=== PATIENT | male | born 1955 | race Hispanic/Latino ===

== ENCOUNTER 2021-05-23 10:51 | Emergency (ER) | payer OTHER, SELFPAY ==
--- NOTE | ~2021-05-23 | CT_ITS ---
EXAMINATION: CT brain wo con INDICATION: Head injury COMPARISON: None TECHNIQUE: Standard unenhanced head CT. The dose-length product (DLP) was 605.33 mGy-cm. The mA was a djusted according to patient size. Iterative reconstruction technique was employed. FINDINGS: There is no intracranial hemorrhage, acute infarction, or abnormal mass lesion. The ventric les are normal. There is no abnormal mass effect or midline shift. The way-white matter differentiat ion is normal. The basal cisterns are patent. The orbits are normal. The paranasal sinuses, mastoids and calvarium are normal. IMPRESSION: 1. No acute intracranial abnormality. Reviewed, dictated and finalized at location A. E CARE PHYSICAL THERAPIST
--- NOTE | ~2021-05-23 | CT_ITS ---
EXAMINATION: CT thoracic lumbar wo con DATE: 05/23/2021 11:27 INDICATION: Thoracic back pain after fall TECHNIQUE: Computed tomography (CT) of the thoracic and lumbar spine was performed without intravenou s contrast. The dose-length product (DLP) was 605.33 mGy-cm. Iterative reconstruction was used. COMPARISON: None FINDINGS: Thoracic spine: There is no fracture, dislocation, or subluxation. The vertebral body heights, alignm ent, and intervertebral disc spaces are normal. The paravertebral soft tissues are unremarkable. Lumbar spine: There are changes of anterior and posterior fusion at L4-5. No fracture is identified. The vertebral body heights are normal. The prevertebral soft tissues are unremarkable. A bone graft h arvest site is noted in left ilium. IMPRESSION: 1. No acute osseous abnormality of the thoracic or lumbar spine. Reviewed, dictated and finalized at location A. OF ACQUISITIONS
--- NOTE | ~2021-05-23 | CT_ITS ---
EXAMINATION: CT cervical spine wo con DATE: 05/23/2021 11:27 INDICATION: Head injury, neck pain TECHNIQUE: Computed tomography (CT) of the cervical spine was performed without intravenous contrast. The dose-length product (DLP) was 605.33 mGy-cm. Automated exposure control and iterative reconstruc tion technique were employed. COMPARISON: None FINDINGS: There is no fracture, dislocation, or subluxation. The vertebral body heights are maintaine d. There is mild loss of intervertebral disc space height at C6-7. The odontoid is intact. The prever tebral soft tissues are normal. IMPRESSION: 1. Mild cervical spondylosis without acute findings. Reviewed, dictated and finalized at location A. ICAL CHEMISTRY PROFESSOR
[2021-05-23 10:55] VITALS: BP 154/85; PULSE 65; RESP 18; TEMP 36.8; O2SAT 100
--- NOTE | 2021-05-23 11:09 | ED.HEATRA ---
HPI - Head Injury General Chief complaint: Head Injury Stated complaint: head injury yesterday Time Seen by Provider: 05/23/21 10:55 Source: patient and family Mode of arrival: ambulatory Limitations: language barrier (Patient's daughter is interpreting, which he prefers) History of Present Illness HPI Narrative: This is a 66-year-old male that presents to the emergency department for head injury sustained yesterday. 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 He slipped and fell on the ice landing on his back and hitting his head on the ground. Reports he vomited after this. He does not think that he lost consciousness. Since he has had persistent headache and feels lightheaded. Also reports neck and back pain. Denies vision changes, numbness, or weakness. Related Data Allergies Allergy/AdvReac Type Severity Reaction Status Date / Time No Known Allergies Allergy Verified 05/23/21 11:15 Review of Systems Review of Systems: CONSTITUTIONAL: Denies fever EYES: Denies visual changes GASTROINTESTINAL: Reports vomiting MUSCULOSKELETAL: Reports back pain, joint pain, and myalgia. NEUROLOGIC: Reports headache. Denies numbness, or weakness. All systems reviewed & are unremarkable except as noted in HPI and below PMFSH Past Medical History Medical History (Updated 05/23/21 @ 12:17 by Kala Donaldson PA-C) History of gastroesophageal reflux (GERD) History of hyperlipidemia Social History Social History (Updated 05/23/21 @ 11:12 by Kala Donaldson PA-C) Smoking status: Never smoker Exam Narrative: GENERAL: Well-appearing, well-nourished, and in no acute distress. HEAD: Normocephalic, atraumatic. EYES: PERRLA and EOMI. ENT: Nares clear, no rhinorrhea or epistaxis. Mucous membranes moist. Oropharynx without tonsillar hypertrophy exudate or other lesions. Bilateral TMs pearly way non-bulging NECK: Supple. No adenopathy or masses. Tender to palpation of midline cervical spine CHEST: Clear to auscultation. No respiratory distress. No wheezes rales or rhonchi HEART: Regular rate and rhythm. No murmur heard. Normal peripheral pulses. BACK: Tender to palpation of midline thoracic and lumbar spine EXTREMITIES: Normal range of motion. No edema. Strength equal in bilateral upper and lower extremities (5/5) SKIN: Warm, dry, no rash. NEURO: No focal deficits. Alert and oriented x3. Cranial nerves II through XII grossly intact PSYCH: Normal mood and affect Course Vital Signs Vital signs: Vital Signs Temperature 98.2 F 05/23/21 10:55 Pulse Rate 65 05/23/21 10:55 Respiratory Rate 18 05/23/21 10:55 Blood Pressure 154/85 H 05/23/21 10:55 Pulse Oximetry 100 05/23/21 10:55 Temperature 98.2 F 05/23/21 10:55 Pulse Rate 65 05/23/21 10:55 Respiratory Rate 18 05/23/21 10:55 Blood Pressure 154/85 H 05/23/21 10:55 Pulse Oximetry 100 05/23/21 10:55 MDM - Head Injury MDM Narrative Medical decision making narrative: Patient presents to the emergency department after head injury yesterday with headache, neck pain, back pain. Patient is neurologically intact. CT scan of the brain, cervical spine, thoracic and lumbar spine without acute findings. Patient and family updated on case findings. He was instructed on care of concussion. He is to follow-up with his primary care doctor. He was given warnings to return to the ER Imaging Data Radiologist's impression: ITS Impressions Head CT 05/23/21 11:45 IMPRESSION: 1. No acute intracranial abnormality. Cervical Spine CT 05/23/21 11:49 IMPRESSION: 1. Mild cervical spondylosis without acute findings. Thoracic/Lumbar Spine CT 05/23/21 11:53 IMPRESSION: 1. No acute osseous abnormality of the thoracic or lumbar spine. Critical Care Time Critical Care Time Critical Care Time: No Discharge Plan Discharge Clinical Impression: Acute neck pain Closed head injury Qualifiers: Encounter type: initial encounter Qualified
[2021-05-23] MEDS: ACETAMINOPHEN 500 MG TABLET 1000 MG PO (11:31)
[2021-05-23] MEDS: ONDANSETRON HCL ODT 4 MG TABLET PO (12:07)
--- NOTE | 2021-05-23 12:07 | PC.NURSE ---
C Collar removed per PA instructions.
[2021-05-23 12:27] VITALS: BP 138/82; PULSE 76; RESP 16; O2SAT 100
== END 2021-05-23 12:28 | disposition home or self-care (01) ==
PROVIDERS: Emergency Provider Emergency Medicine; PCP Family Medicine
DX: S09.90XA Unspecified injury of head, initial encounter (principal); M54.2 Cervicalgia; K21.9 Gastro-esophageal reflux disease without esophagitis; E78.5 Hyperlipidemia, unspecified; M47.812 Spondylosis without myelopathy or radiculopathy, cervical region; W00.0XXA Fall on same level due to ice and snow, initial encounter
CPT/HCPCS: 70450; 72125; 72128; 72131; 99284; A9270; L0140

== ENCOUNTER 2021-11-21 23:14 | Emergency (ER) | payer OTHER, SELFPAY ==
--- NOTE | ~2021-11-21 | XR_ITS ---
EXAMINATION: XR shoulder RT min 2V INDICATION: Right shoulder pain TECHNIQUE: Four views of the right shoulder are submitted. COMPARISON: None FINDINGS: Normal alignment. No fracture. There is moderate osteoarthritis of the acromioclavicular neli int. Soft tissues are unremarkable. IMPRESSION: 1. Osteoarthritis without acute osseous abnormality. Reviewed, dictated and finalized at location A.
[2021-11-21 23:21] VITALS: BP 159/85; PULSE 58; RESP 16; TEMP 36.1; O2SAT 100
[2021-11-21] MEDS: KETOROLAC (*BKC) 60 MG/2 ML VIAL IM (23:34)
--- NOTE | 2021-11-21 23:50 | ED.UPPEXIN ---
HPI - Extremity Injury (Upper) General Chief Complaint: Extremity Injury, Upper Stated Complaint: upper arm/shoulder injury Time Seen by Provider: 11/21/21 23:17 History of Present Illness HPI narrative: 66-year-old male presents emergency room secondary to pain to the right shoulder area. 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 Yesterday he was pulling on a large tree branch and then began having pain yesterday evening. The pain is mainly to the posterior aspect of the shoulder around the scapular region. Denies any fall or trauma. He was not struck by anything to his shoulder. Denies any chronic ongoing issues with his right upper extremity. Just cannot get into a position of comfort. Whenever he sits up or stands up just the weight of his arm coming down causes pain to the area. 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 Head Normocephalic and atraumatic. EYES: PERRLA/EOMI, conjunctivae clear. NOSE: Normal with no drainage EARS:TMS clear with Colón, with good light reflex. THROAT: Pharynx clear, no exudate. NECK: Supple. No adenopathy, no masses. RESPIRATORY: Airway patent, respirations nonlabored. Clear to auscultation bilaterally, no rales, rhonchi, wheezing. CARDIOVASCULAR: Regular rate and rhythm without murmurs, rubs, or gallops. ABDOMINAL: Soft, nontender, nondistended, no hepatosplenomegaly Musculoskeletal: Moves all extremities. Strength/ROM intact, No edema, No calf tenderness. Tenderness with range of motion testing to the right upper extremity. He is got some tenderness to palpation along the trapezius muscles on the right side. No obvious deformity. Good distal pulses. NEURO: Alert. Cranial nerves II through XII intact. Normal gait. Good coordination. Nonfocal examination. SKIN:: Warm, dry. Normal Color PSYCHIATRIC: Normal affect/mood, normal interaction Course Vital Signs Vital signs: Vital Signs Temperature 97.0 F L 11/21/21 23:21 Pulse Rate 58 L 11/21/21 23:21 Respiratory Rate 16 11/21/21 23:21 Blood Pressure 159/85 H 11/21/21 23:21 Pulse Oximetry 100 11/21/21 23:21 Oxygen Delivery Room Air 11/21/21 23:21 Temperature 97.0 F L 11/21/21 23:21 Pulse Rate 58 L 11/21/21 23:21 Respiratory Rate 16 11/21/21 23:21 Blood Pressure 159/85 H 11/21/21 23:21 Pulse Oximetry 100 11/21/21 23:21 Oxygen Delivery Room Air 11/21/21 23:21 MDM - Extremity Injury (Upper) MDM Narrative Medical decision making narrative: Presentation consistent with musculoskeletal type pain muscular in nature predominantly to the right shoulder area. X-ray was obtained as interpreted by me shows some arthritic changes at the AC joint. No other abnormalities are noted. This was explained to the patient. We will fitted him with a right arm sling because the weight of his arm is causing more muscle spasm and pain. We will discharge him with a prescription for Naprosyn as well as some Flexeril. Given a work excuse for 3 days. Discharge Plan Discharge Clinical Impression: Muscle strain of right scapular region Patient Disposition: Home, Self-Care Condition: Stable Instructions: Musculoskeletal Pain (ED) Additional Instructions: Use sling as needed. Return if worse. Prescriptions: New naproxen [Naprosyn] 500 mg tablet 500 mg PO BID PRN (Reason: pain) Qty: 20 0RF cyclobenzaprine 10 mg tablet 10 mg PO TID PRN
[2021-11-22 00:32] VITALS: BP 123/73; PULSE 60; RESP 16; O2SAT 100
== END 2021-11-22 00:31 | disposition home or self-care (01) ==
PROVIDERS: Emergency Provider Emergency Medicine; PCP Family Medicine
DX: S46.811A Strain of other muscles, fascia and tendons at shoulder and upper arm level, right arm, initial encounter (principal); K21.9 Gastro-esophageal reflux disease without esophagitis; E78.5 Hyperlipidemia, unspecified; X50.9XXA Other and unspecified overexertion or strenuous movements or postures, initial encounter
CPT/HCPCS: 73030; 96372; 99283; A4565; J1885

== ENCOUNTER 2023-02-28 12:48 | Emergency (ER) | payer MEDICARE, MEDICAID, SELFPAY ==
--- NOTE | ~2023-02-28 | CT_ITS ---
EXAMINATION: CT abdomen pelvis w con DATE: 02/28/2023 13:57 INDICATION: Right lower quadrant pain TECHNIQUE: Computed tomography (CT) of the abdomen and pelvis was performed with 100 cc Omnipaque 350 intravenous contrast. The dose-length product was 503.29 mGy-cm. Automated exposure control and iter ative reconstruction technique were employed. COMPARISON: None. FINDINGS: There is dependent atelectasis. No significant pleural or pericardial effusion. Heart size normal. Fatty infiltration of the liver. There is a liver cyst involving the right hepatic lobe. The spleen, pancreas, adrenal glands are unremarkable. There are bilateral renal cysts. No hydronephrosis . Nonobstructive bowel gas pattern. Nonobstructive bowel gas pattern. Colonic diverticulosis without evidence for diverticulitis. Enlarged prostate gland. No significant vascular abnormality. No lymphad enopathy. Gallbladder is present. No free air or free fluid. There is osteoarthritis of the hips. The re is a bone marrow donor site in the left ilium. There are surgical changes consistent with fusion a t L4-5. IMPRESSION: 1. No acute abdominal abnormality. 2: Hepatic steatosis. Reviewed, dictated and finalized at location B. DITCHER
[2023-02-28 12:49] VITALS: BP 130/90; PULSE 64; RESP 16; TEMP 36.8; O2SAT 100
[2023-02-28 13:09] VITALS: PULSE 60; RESP 18; O2SAT 99
[2023-02-28 13:15] VITALS: PULSE 61; RESP 20; O2SAT 98
[2023-02-28 13:20] LABS: Basophils Percent Auto 0.5 % (0.2-1.2); Eosinophils Absolute Auto 0.2 K/mm3 (0-0.3); Eosinophils Percent Auto 2.8 % (0-4.4); Hematocrit 40.8 % (42.0-52.0); Hemoglobin 14.2 g/dL (14.0-18.0); Immature Granulocyte Absolute 0.01 K/mm3 (0.00-0.031); Immature Granulocyte Percent A 0.1 % (0-0.5); Lymphocytes Absolute Auto 2.25 K/mm3 (0.9-3.2); Lymphocytes Percent Auto 29.8 % (18.3-44.2); Mean Corpuscular HGB Conc 34.8 g/dl (32-36); Mean Corpuscular Hemoglobin 31.8 pg (26-34); Mean Corpuscular Volume 91.5 fl (80-100); Mean Platelet Volume 9.2 fl (7.4-10.4); Monocytes Absolute Auto 0.6 K/mm3 (0.1-0.6); Monocytes Percent Auto 7.7 % (2.6-8.5); Neutrophils Absolute Auto 4.5 K/mm3 (1.3-6.7); Neutrophils Percent Auto 59.1 % (45.5-73.1); Platelet Count Result 174 k/mm3 (150-375); Red Blood Count 4.46 M/mm3 (4.6-6.20); Red Cell Distribution Width 11.8 % (11.5-14.5); White Blood Count 7.6 K/mm3 (4.5-10.0)
[2023-02-28 13:22] LABS: Appearance Urine Clear (Clear); Bilirubin Urine Negative (Negative); Blood Urine Negative (Negative); Color Urine Yellow (Yellow); Glucose Urine UA Negative (Negative); Ketones Urine Negative (Negative); Leukocyte Esterase Ur Negative LEU/UL (Negative); Nitrate Urine Negative (Negative); Protein Urine Negative (Negative); Specific Grav Ur 1.022 (1.001-1.035); Urobilinogen Urine 0.2 mg/dL (<2.0); pH Urine 5.5 (5.0-9.0)
[2023-02-28 13:30] VITALS: PULSE 56; RESP 20; O2SAT 98
[2023-02-28 13:31] LABS: Alanine Aminotransferase 33 U/L (6-50); Albumin Level 4.5 g/dL (3.5-5.1); Alkaline Phosphatase 62 U/L (38-126); Anion Gap 9 mmol/L (8-16); Aspartate Amino Transferase 31 U/L (17-59); Bilirubin,Total 0.9 mg/dL (0.2-1.3); Blood Urea Nitrogen 20 mg/dL (9-20); Carbon Dioxide 28 mmol/L (22-30); Chloride 104 mmol/L (98-107); Estimated CRCL calculation 71 ml/min; Estimated Glomerular Filt Rate > 60; Glucose 111 mg/dL (65-110); Potassium 3.6 mmol/L (3.4-5.0); Sodium 141 mmol/L (137-145)
[2023-02-28 13:40] LABS: Add Urine Microscopic? NO
--- NOTE | 2023-02-28 13:48 | PC.NURSE ---
Pt taken for CT at this time
--- NOTE | 2023-02-28 13:55 | PC.NURSE ---
Pt returned to room 2 at this time
[2023-02-28 14:03] VITALS: PULSE 58; RESP 19; O2SAT 99
--- NOTE | 2023-02-28 14:19 | ED.GENADULT ---
HPI - General Adult General Chief complaint: Abdominal Pain Stated complaint: abd pain Time Seen by Provider: 02/28/23 12:59 History of Present Illness HPI narrative: Patient is a 68-year-old male who presents ER with right-sided abdominal pain. Right lower quadrant. Aching. Intermittently over last 2 weeks. No fevers or chills or sweats. Endorses mild constipation. Last bowel movement was today and the previous 1 was yesterday. No urinary symptoms. Cannot identify alleviating factors. Denies trauma. Related Data Allergies Allergy/AdvReac Type Severity Reaction Status Date / Time No Known Allergies Allergy Verified 05/23/21 11:15 Review of Systems Review of Systems: All systems reviewed & are unremarkable except as noted in HPI and below Constitutional: Constitutional: Reports no additional constitutional complaints ENT: Reports system reviewed and no additional complaints, except as documented Cardiovascular: Cardiovascular: Reports no additional cardiovascular complaints Respiratory: Respiratory: Reports no additional respiratory complaints Gastrointestinal: Gastrointestinal: Reports abdominal pain, Denies nausea and Denies vomiting PMFSH Past Medical History Medical History (Updated 02/28/23 @ 14:20 by Nigel Young MD) History of gastroesophageal reflux (GERD) History of hyperlipidemia Postconcussion syndrome Social History Social History (Updated 11/21/21 @ 23:51 by Carmelo Monzon DO) Smoking status: Never smoker Occupation/Education: occupation Additional occupation/education comments: [employer] Exam Narrative: GENERAL: Well-appearing, well-nourished, and in no acute distress. HEAD: Normocephalic, atraumatic. ENT: Mucous membranes moist. CHEST: Clear to auscultation. No respiratory distress. HEART: Regular rate and rhythm. Normal peripheral pulses. ABDOMEN: Soft, mild tenderness palpation right lower quadrant, nondistended. EXTREMITIES: Normal range of motion. No edema. SKIN: Warm, dry, no rash. NEURO: Alert and oriented x3. PSYCH: Normal mood and affect. Course Course Emergency Course: Unremarkable evaluation. Patient appropriate for discharge home. Will start on stool softener. Vital Signs Vital signs: Vital Signs Temperature 98.2 F 02/28/23 12:49 Pulse Rate 64 02/28/23 12:49 Respiratory Rate 16 02/28/23 12:49 Blood Pressure 130/90 02/28/23 12:49 Pulse Oximetry 100 02/28/23 12:49 Temperature 98.2 F 02/28/23 12:49 Pulse Rate 58 L 02/28/23 14:03 Respiratory Rate 19 02/28/23 14:03 Blood Pressure 128/78 02/28/23 14:30 Pulse Oximetry 99 02/28/23 14:03 Medical Decision Making Vital Signs Vital Signs: Vital Signs Temperature 98.2 F 02/28/23 12:49 Pulse Rate 64 02/28/23 12:49 Respiratory Rate 16 02/28/23 12:49 Blood Pressure 130/90 02/28/23 12:49 Pulse Oximetry 100 02/28/23 12:49 Temperature 98.2 F 02/28/23 12:49 Pulse Rate 58 L 02/28/23 14:03 Respiratory Rate 19 02/28/23 14:03 Blood Pressure 128/78 02/28/23 14:30 Pulse Oximetry 99 02/28/23 14:03 Lab Data 02/28/23 13:12 02/28/23 13:12 Labs: Lab Results 02/28/23 02/28/23 Range/Units 13:11 13:12 WBC 7.6 (4.5-10.0) K/mm3 RBC 4.46 L (4.6-6.20) M/mm3 Hgb 14.2 (14.0-18.0) g/dL Hct 40.8 L (42.0-52.0) % MCV 91.5 (80-100) fl MCH 31.8 (26-34) pg MCHC 34.8 (32-36) g/dl RDW 11.8 (11.5-14.5) % Plt Count 174 (150-375) k/mm3 MPV 9.2 (7.4-10.4) fl Immature Gran % (Auto) 0.1 (0-0.5) % Neut % (Auto) 59.1 (45.5-73.1) % Lymph % (Auto) 29.8 (18.3-44.2) % [place] % (Auto) 7.7 (2.6-8.5) % Eos % (Auto) 2.8 (0-4.4) % Baso % (Auto) 0.5 (0.2-1.2) % Lymph # (Auto) 2.25 (0.9-3.2) K/mm3 [place] # (Auto) 0.6 (0.1-0.6) K/mm3 Eos # (Auto) 0.2 (0-0.3) K/mm3 Baso # (Auto) 0.0 (0.0-0.1) K/mm3 Abs Immat Gran (auto) 0.01 (0.0
[2023-02-28 14:30] VITALS: BP 128/78
== END 2023-02-28 14:30 | disposition home or self-care (01) ==
LOC: ANHED 14:32
PROVIDERS: Emergency Provider Emergency Medicine; PCP Family Medicine
DX: R10.9 Unspecified abdominal pain (principal); K21.9 Gastro-esophageal reflux disease without esophagitis; E78.5 Hyperlipidemia, unspecified
CPT/HCPCS: 36415; 74177; 80053; 81003; 85025; 99284; Q9967

== ENCOUNTER 2024-03-19 18:27 | Emergency (ER) | payer MEDICARE, MEDICAID, SELFPAY ==
--- NOTE | ~2024-03-19 | XR_ITS ---
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 RESULT: Lines, tubes, and devices: None. Lungs and pleura: Clear. Cardiomediastinal silhouette: Stable. Other: No acute osseous or upper abdominal finding. IMPRESSION: No acute cardiopulmonary process. Reviewed, dictated and finalized at location K. BLANK MACHINE OPERATOR
--- NOTE | 2024-03-19 18:28 | ECG_ITS ---
Test Date: 2024-03-19 18:34:34 Measurements Intervals [place] Rate: 57 P: -20 NH: 138 QRS: 57 QRSD: 92 T: 46 QT: 395 QTc: 387 Interpretive Statements SINUS BRADYCARDIA POSSIBLE RIGHT VENTRICULAR CONDUCTION DELAY [RSR (QR) IN V1/V2] No previous ECG available for comparison Electronically Signed On 03-20-2024 14:50:46 BUTTER PRODUCTION SUPERVISOR by Wendy Perez M.D.
[2024-03-19 18:29] VITALS: BP 154/64; PULSE 60; RESP 18; TEMP 36.5; O2SAT 100
[2024-03-19 21:29] LABS: Basophils Percent Auto 0.6 % (0.2-1.2); Eosinophils Absolute Auto 0.2 K/mm3 (0-0.3); Eosinophils Percent Auto 2.9 % (0-4.4); Hematocrit 40.1 % (42.0-52.0); Hemoglobin 14.2 g/dL (14.0-18.0); Immature Granulocyte Absolute 0.03 K/mm3 (0.00-0.031); Immature Granulocyte Percent A 0.4 % (0-0.5); Mean Corpuscular HGB Conc 35.4 g/dl (32-36); Mean Corpuscular Hemoglobin 32.3 pg (26-34); Mean Corpuscular Volume 91.3 fl (80-100); Mean Platelet Volume 9.4 fl (7.4-10.4); Monocytes Absolute Auto 0.5 K/mm3 (0.1-0.6); Monocytes Percent Auto 7.5 % (2.6-8.5); Neutrophils Absolute Auto 3.9 K/mm3 (1.3-6.7); Neutrophils Percent Auto 55.6 % (45.5-73.1); Platelet Count Result 178 k/mm3 (150-375); Red Blood Count 4.39 M/mm3 (4.6-6.20); Red Cell Distribution Width 11.9 % (11.5-14.5)
[2024-03-19 21:39] LABS: Alanine Aminotransferase 33 U/L (6-50); Albumin Level 4.6 g/dL (3.5-5.1); Alkaline Phosphatase 66 U/L (38-126); Anion Gap 6 mmol/L (4-12); Aspartate Amino Transferase 31 U/L (17-59); Bilirubin,Total 0.8 mg/dL (0.2-1.3); Blood Urea Nitrogen 25 mg/dL (9-20); Calcium 9.3 mg/dL (8.4-10.2); Carbon Dioxide 27 mmol/L (22-30); Chloride 108 mmol/L (98-107); Estimated CRCL calculation 63 ml/min; Estimated Glomerular Filt Rate > 60; Glucose 111 mg/dL (65-110); Lipase 87 U/L (23-300); Potassium 4.3 mmol/L (3.4-5.0); Sodium 141 mmol/L (137-145)
[2024-03-19 21:51] LABS: Troponin I < 0.012 ng/mL (0.000-0.034)
[2024-03-19 21:54] LABS: Partial Thromboplastin Time 25.7 Seconds (22.3-36.8); Prothrombin Time 13.4 Seconds (11.1-14.7)
[2024-03-19 23:23] VITALS: BP 150/76; PULSE 52; RESP 16; TEMP 36.4; O2SAT 98
--- NOTE | 2024-03-20 01:46 | ECG_ITS ---
Test Date: 2024-03-20 01:52:19 Measurements Intervals [place] Rate: 50 P: 10 UT: 153 QRS: 58 QRSD: 97 T: 49 QT: 431 QTc: 393 Interpretive Statements SINUS BRADYCARDIA POSSIBLE RIGHT VENTRICULAR CONDUCTION DELAY [RSR (QR) IN V1/V2] Compared to ECG 03/19/2024 18:34:34 No significant changes Electronically Signed On 03-20-2024 14:54:01 FLYER REPAIRER by Wendy Perez M.D.
[2024-03-20] MEDS: ASPIRIN 81 MG CHEWABLE TABLET 324 MG PO (02:00)
--- NOTE | 2024-03-20 02:01 | ED_ITS ---
HPI - Chest Pain General Chief Complaint: Chest Pain Stated Complaint: lower back pain and CP Time Seen by Provider: 03/20/24 01:57 Source: patient and family Mode of arrival: ambulatory Limitations: language barrier (Italian as second language - declined interpretive services x2; said wouldn't understand; understands Italian and speaks some but prefers to speak in Nauruan) History of Present Illness HPI narrative: Patient presents with chest pain and low back pain. Chest pain occurs when he bends over, initially noticed it while bending over in the shower 15 days ago. Described as a tightness/burning sensation especially when he bends over. Non radiating. Intermittent. No prior sress test or cardiac catheterization. Has not seen cardiology. Has never happened before. Some shortness of breath. No cough, fever, chills, nausea, vomiting, diaphoresis. States he has a history of a GI issue (GERD or gastritis) that he was prescribed medicine for but not taking. Symptoms possibly associated with food like spicy food though unsure. History of hypertension, hyperlipidemia (on a statin). No history diabetes. Non smoker. No prior VA/TIA/CVA. No family history of VA <65yo. Back pain started Tuesday, is low and radiates into right buttock and leg, to the knee. He has a history of back surgery. Pain worse when standing and walking. No trauma/injury, paresthesias, saddle anesthesia, bowel/bladder incontinence, steroids use, cancer. No hematuria/urgency/frequency/dysuria. Has not yet taken anything for pain. He states occasionally he experiences right sided abdominal pain. Denies any underlying respiratory issues but then states he is on a medication for breathing. PCP Katie Damian Related Data Allergies Allergy/AdvReac Type Severity Reaction Status Date / Time No Known Allergies Allergy Verified 05/23/21 11:15 [facility] Past Medical History Medical History Hypertension Postconcussion syndrome History of gastroesophageal reflux (GERD) History of hyperlipidemia Surgical History Surgical History (Updated 03/21/24 @ 19:13 by Zohra Conklin MD) History of back surgery Social History Social History Smoking status: Never smoker Occupation/Education: occupation Additional occupation/education comments: [employer] 2 Narrative: GENERAL: Well-appearing, well-nourished, and in no acute distress. HEAD: Normocephalic, atraumatic. EYES: Non injected, non icteric ENT: Nares clear, no rhinorrhea or epistaxis. NECK: Supple. CHEST: Speaking in full sentences. No respiratory distress. HEART: Regular rate and rhythm. . ABDOMEN: Soft, nondistended. BACK: No TTP of low thoracic or lumbar spine; no bony deformities. Straight leg raise negative bilaterally. Can show some side to side and rotational movement. EXTREMITIES: Normal range of motion. No lower extremity edema. 5/5 strength with ankle dorsiflexion/plantarflexion bilaterally, knee flexion/extension, hip flexion/abduction/adduction. SKIN: Warm, dry, no rash. NEURO: No focal deficits. Alert and oriented x3. Sensation intact in bilateral lower extremities. PSYCH: Normal mood and affect. Course Vital Signs Vital signs: Vital Signs Temperature 97.7 F 03/19/24 18:29 Pulse Rate 60 03/19/24 18:29 Respiratory Rate 18 03/19/24 18:29 Blood Pressure 154/64 H 03/19/24 18:29 Pulse Oximetry 100 03/19/24 18:29 Oxygen Delivery Room Air 03/19/24 18:29 Temperature 98 F 03/20/24 09:12 Pulse Rate 59 L 03/20/24 09:12 Respiratory Rate 20 03/20/24 09:12 Blood Pressure 146/88 H 03/20/24 09:12 Pulse Oximetry 98 03/20/24 09:12 Oxygen Delivery Room Air 03/20/24 02:07 MDM - Chest Pain MDM Narrative Medical decision making narrative: Patient presents with chest pain and back pain. In the emergency department he is afebrile with vital signs notable for mild hypertension. HEART SCORE History 2 highly suspicious 1 moderately suspicious 0 slightly suspicious History score [address] depression/elevation not due to LBBB, LVH, or digoxin [address] depression but LBBB, LVH, nonspecific repolarization changes 0 normal ECG score 0 Age 2 >/= 65 1 45-64 0 <45 Age score 2 Risk factors (HTN, hypercholesterolemia, DM, obesity with BMI >30, current smoker or cessation </=3mo), positive fam hx with parent or sibling with CVD before age 65, atherosclerotic disease (prior VA, PCI/CABG, CVA/TIA, or peripheral arterial disease) 2 >/= 3 risk factors or history of atherosclerotic dz 1 - 1-2 risk factors 0 no known risk factors Risk factor score 1 (HLD) Initial Troponin 2 >3 times normal limit 1 1-3 times normal limit 0 less than or equal to normal limit Troponin score = 0 Total HEART Score 3 Repeat troponin negative. Patient's chest pain sounds very GI in nature, in particular GERD and we discussed the relaxation of the esophageal sphincter and the heartburn that can result. Patient given medication for this. Back has no deformities, external skin changes, or signs of trauma. Curvature is within normal limits. No tenderness is noted on palpation of the spinous processes which are midline. Lumbar paraspinal muscles are not tender under without spasm. Patient demonstrates flexion, extension, and [id number] rotation of the lumbar spine. Sensation to the lower extremities is normal bilaterally. Dorsi/plantar flexion is normal bilaterally. Straight leg raise test is negative bilaterally. They do not have any other red flags for fracture, malignancy, infection (e.g. spinal epidural abscess), or aortic/vascular: Age, no trauma, not on chronic steroids, no cancer, no fever, immunosuppression, left sided abdominal pain, tearing pain, or urinary symptoms. Given this, will defer further imaging at this time. His symptoms are classically sciatica. Given analgesic medication and discussed multimodal pain strategy and the importance of stretching exercises. Patient and daughter verify understanding. Differential Diagnosis Differential diagnosis: Likely unstable angina pectoris, atypical chest pain, st elevation myocardial infarction, chest pain, biliary colic and other (GERD, gastritis) Lab Data Attestation: I reviewed the patient's lab results. 03/19/24 21:09 03/19/24 21:09 Labs: Lab Results 03/19/24 03/20/24 Range/Units 21:09 02:01 WBC 7.0 (4.5-10.0) K/mm3 RBC 4.39 L (4.6-6.20) M/mm3 Hgb 14.2 (14.0-18.0) g/dL Hct 40.1 L (42.0-52.0) % MCV 91.3 (80-100) fl MCH 32.3 (26-34) pg MCHC 35.4 (32-36) g/dl RDW 11.9 (11.5-14.5) % Plt Count 178 (150-375) k/mm3 MPV 9.4 (7.4-10.4) fl Immature Gran % (Auto) 0.4 (0-0.5) % Neut % (Auto) 55.6 (45.5-73.1) % Lymph % (Auto) 33.0 (18.3-44.2) % [place] % (Auto) 7.5 (2.6-8.5) % Eos % (Auto) 2.9 (0-4.4) % Baso % (Auto) 0.6 (0.2-1.2) % Lymph # (Auto) 2.30 (0.9-3.2) K/mm3 [place] # (Auto) 0.5 (0.1-0.6) K/mm3 Eos # (Auto) 0.2 (0-0.3) K/mm3 Baso # (Auto) 0.0 (0.0-0.1) K/mm3 Abs Immat Gran (auto) 0.03 (0.00-0.031) K/mm3 Absolute Neuts (auto) 3.9 (1.3-6.7) K/mm3 Absolute Nucleated RBC 0.000 (0.0-0.012) K/mm3 Nucleated RBC % 0.0 (0.0-0.2) % PT 13.4 (11.1-14.7) Seconds INR 1.0 APTT 25.7 (22.3-36.8) Seconds Sodium 141 (137-145) mmol/L Potassium 4.3 (3.4-5.0) mmol/L Chloride 108 H (98-107) mmol/L Carbon Dioxide 27 (22-30) mmol/L Anion Gap 6 (4-12) mmol/L BUN 25 H (9-20) mg/dL Creatinine 0.90 (0.7-1.3) mg/dL Estim Creat Clear Calc 63 ml/min Estimated GFR > 60 (59 - ) Glucose 111 H (65-110) mg/dL Calcium 9.3 (8.4-10.2) mg/dL Total Bilirubin 0.8 (0.2-1.3) mg/dL AST 31 (17-59) U/L ALT 33 (6-50) U/L Alkaline Phosphatase 66 (38-126) U/L Troponin I < 0.012 < 0.012 (0.000-0.034) ng/mL Total Protein 8.0 (6.3-8.2) g/dL Albumin 4.6 (3.5-5.1) g/dL Lipase 87 (23-300) U/L Imaging Data Radiologist's impression: IMPRESSION: No acute cardiopulmonary process. ECG Data EKG #1: Attestation: I personally reviewed and interpreted this ECG as follows: ECG completion date: 03/19/24 ECG completion time: 18:34 Prior ECG tracings: not available for review (No prior for comparison) Interpretation: Sinus bradycardia at a rate of 57 beats per minute. GA interval 138. QRS 92. QT/QTC 395/390. Good R-wave progression across the precordial leads. No T-wave inversions. Normal axis. EKG #2: Attestation: I personally reviewed and interpreted this ECG as follows: ECG completion date: 03/20/24 ECG completion time: 01:52 Interpretation: Sinus bradycardia at a rate of 50 beats per minute. GA interval 153. QRS 97. QT/QTC 431/403. Good R-wave progression across the precordial leads. No T-wave inversions. Normal axis. Discharge Plan Discharge Clinical Impression: Chest pain due to GERD, Sciatica of right side Patient Disposition: Home, Self-Care Condition: Stable Instructions: Antibiotic Form, Diet for Stomach Ulcers and Gastritis (ED), Sciatica (ED), GERD (Gastroesophageal Reflux Disease) (DC), Lower Back Exercises (ED) Additional Instructions: As we discussed, it appears your chest pain is due to GERD. The initial treatment for this is both related to changing diet as well as using the medication prescribed (which might be the medication you had previously been prescribed for gastritis). However, given the you are otherwise low risk but not WITHOUT risk, recommend you follow up with cardiology for a further assessment in the outpatient setting - name and information listed below. For your back pain, a multimodal pain regimen strategy has been prescribed. As we discussed, the goal is to balance rest with treating pain in a variety of worry to allow you to maintain activities and movement including back strengthening exercises. Acetaminophen/Tylenol (maximum 4000 mg per day) is safe to take with NSAIDs (ibuprofen/Motrin) for pain relief. Follow up with your primary care provider Katie Damian. Return to the ER if you have increased pain in your back, you develop lower extremity weakness/numbness/paralysis, you have numbness or tingling in your private parts, or you are unable to control your ability to urinate/stool. Patient Language: Italian Prescriptions: New omeprazole 20 mg tablet,delayed release (DR/EC) 20 mg PO DAILY Qty: 30 0RF acetaminophen 500 mg capsule 1,000 mg PO Q6H PRN (Reason: pain) Qty: 30 0RF lidocaine 4 % adhesive patch,medicated 1 patch topical DAILY PRN (Reason: pain) Qty: 5 0RF methocarbamol 750 mg tablet 750 mg PO HS Qty: 10 0RF ibuprofen 600 mg tablet 600 mg PO TID PRN (Reason: pain) Qty: 30 0RF No Action ondansetron 4 mg tablet,disintegrating 4 mg PO Q8H PRN (Reason: nausea and vomiting) Qty: 10 0RF naproxen [Naprosyn] 500 mg tablet 500 mg PO BID PRN (Reason: pain) Qty: 20 0RF cyclobenzaprine 10 mg tablet 10 mg PO TID PRN (Reason: muscle spasm) Qty: 30 0RF naproxen 375 mg tablet 375 mg PO BID Qty: 14 0RF docusate sodium [Colace] 100 mg capsule 100 mg PO DAILY Qty: 7 0RF docusate sodium [Colace] 100 mg capsule 100 mg PO DAILY Qty: 7 0RF naproxen 375 mg tablet 375 mg PO BID Qty: 14 0RF Follow-up/Referrals: Wendy Perez [Other] Cruzito,Artemio Singh MD [Primary Care Provider] - Stand Alone Forms: Work/School Release IP Time of Disposition: 08:09
[2024-03-20 02:28] LABS: Troponin I < 0.012 ng/mL (0.000-0.034)
[2024-03-20] MEDS: HYDROcodone/acetaminophen (*CRX) 5-325 MG TABLET 1 TAB PO (02:41)
[2024-03-20] MEDS: FAMOTIDINE 20 MG/2 ML VIAL IV PUSH (02:41)
--- NOTE | 2024-03-20 07:08 | PC.NURSE ---
See downtime paper documentation.
[2024-03-20 07:31] VITALS: BP 144/80; PULSE 53; RESP 17; TEMP 36.4; O2SAT 100
[2024-03-20 09:12] VITALS: BP 146/88; PULSE 59; RESP 20; TEMP 36.6; O2SAT 98
== END 2024-03-20 09:12 | disposition home or self-care (01) ==
PROVIDERS: Physician Assistant; Emergency Provider Student in an Organized Health Care Education/Training Program; PCP Family Medicine
DX: K21.9 Gastro-esophageal reflux disease without esophagitis (principal); M54.41 Lumbago with sciatica, right side; I10 Essential (primary) hypertension; E78.5 Hyperlipidemia, unspecified; R00.1 Bradycardia, unspecified; R94.31 Abnormal electrocardiogram [ECG] [EKG]
CPT/HCPCS: 36415; 71046; 80053; 83690; 84484; 85025; 85610; 85730; 93005; 96374; 99284; A9270

== ENCOUNTER 2024-06-23 06:27 | Emergency (ER) | payer MEDICARE, MEDICAID, SELFPAY ==
--- NOTE | ~2024-06-23 | CT_ITS ---
Non-contrast CT scan of the Abdomen and Pelvis Clinical indication: Left flank pain Technique: 2.5 mm axial scans were obtained through the abdomen and pelvis without intravenous or or al contrast. Dose reduction technique was used on this scan by utilizing automated exposure control a nd iterative reconstruction technique. The dose-length product (DLP) was 386.43 mGy-cm. COMPARISON: 02/28/2023 Findings: Images through the lung bases reveal no abnormalities. Probable punctate stone at the left UVJ, without hydronephrosis. No right renal or right ureteral sto ne. No right hydronephrosis. Probable hepatic cyst. The spleen, pancreas, gallbladder, and adrenals appear normal. There are ather osclerotic calcifications of the aorta. . There is no evidence of bowel obstruction. Images through the pelvis were performed. There is no evidence of ascites or lymphadenopathy. Urinary bladder otherwise unremarkable. Prostate gland mildly enlarged. No ascites. Impression: Punctate left UVJ stone, without significant hydronephrosis. Reviewed, dictated and finalized at [facility]. Impression: Punctate left UVJ stone, without significant hydronephrosis.
[2024-06-23 06:29] VITALS: BP 151/71; PULSE 70; RESP 16; TEMP 36.1; O2SAT 99
--- OUTSIDE RECORDS SUMMARY | 2024-06-23 06:30 | XMS_ITS | Clinical Summary ---
Author Organization [facility] Address [address] [place] [id number] Care Team Providers Care Cardiac Care Nurse Name Role Phone No, Physician Primary Care Provider [phone] Allergies No known active allergies Medications cyclobenzaprin e (FLEXERIL) 5 mg tabletIndicati ons:Sprain of chest wall, initial encounter,Ches t wall muscle strain, initial encounter Take 1 tablet (5 mg total) by mouth 3 (three) times a day as needed (Take as directed to relax muscles) Collaborating physician Suresh Wilcox MD 30 tablet 4 Active naproxen (NAPROSYN) 500 mg tabletIndicati ons:Sprain of chest wall, initial encounter,Ches t wall muscle strain, initial encounter Take 1 tablet (500 mg total) by mouth 2 (two) times a day with meals P.r.n. pain. Collaborating physician Suresh Wilcox MD 30 tablet 4 Active Active Problems Problem Noted Date Diagnosed Date Sprain of chest wall 09/29/2023 Chest wall muscle strain, initial encounter 09/10 Immunizations Immunization Administration Dates Next Due Tdap 12/22/2023 Social History Tobacco Use Types Packs/Day Years Used Date Smoking Tobacco: Never Assessed Personal Safety Answer Date Recorded Have you ever been in or are you currently in a harmful physical or emotional relationship or is someone making you feel afraid or unsafe? 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 Gender Identity Not on file Sexual Orientation Not on file Obstetrics History Last Filed Vital Signs Vital Sign Reading Time Taken Comments Blood Pressure 134/71 12/22/2023 10:51 AM CDT Pulse 62 12/22/2023 10:51 AM CDT Temperature 36.9 C (98.4 F) 12/22/2023 10:51 AM CDT Respiratory Rate 16 12/22/2023 10:51 AM CDT Oxygen Saturation 98% 12/22/2023 10:51 AM CDT Inhaled Oxygen Concentration - - Weight 79.8 kg (176 lb) 12/22/2023 10:51 AM CDT Height 167.6 cm (5' 6 ) 09/29/2023 11:50 AM CDT Body Mass Index 28.41 09/29/2023 11:50 AM CDT Plan of Treatment Health Maintenance Due Date Last Done Comments Colon Cancer Screening-Colonoscopy 1957 Depression Screening 1957 Fall Risk Assessment 1957 Hepatitis C Screening 1957 Prostate Cancer Screening-PSA 1957 Hepatitis B Screening 1975 Pneumococcal vaccine 65+ (1 of 1 - PCV) 2007 Zoster Vaccine (1 of 2) 2007 Abdominal Aortic Aneurysm (AAA) Screen 2022 Well Visit 65+ 2022 Covid-19 Vaccine (3 - season) 12/11/202303/2021, 06/30/2020 Influenza Vaccine (#1) 2023 02/07/2020, 2018 DTaP/Tdap/Td Vaccine (2 - Td or Tdap) 12/21/203303/2024 Insurance MEDICARE MEDICARE SOLUTIONS [employer] GENERIC Member Subscriber Plan / Payer (Ef fective 2023-Present) Name:Cliff Cummins Relation to Subscriber:Employee Name:CANDACE DE LEON Address: [address] [place] [address] Payer ID:[id number] Group ID:Not on file Type:WORKERS COMPENSATION Address: [address] [place] [id number] Care Teams Cardiac Care Nurse Relationship Specialty Start Date End Date No, Physician PCP - General 09/29/23
--- OUTSIDE RECORDS SUMMARY | 2024-06-23 06:30 | XMS_ITS | Referral Summary ---
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 Gender Identity Not on file Sexual Orientation Not on file Last Filed Vital Signs Vital Sign Reading [...] 09/29/2023 11:50 AM CDT Plan of Treatment Not on file Insurance MEDICARE MEDICARE SOLUTIONS [facility] MEDICARE Address: [address] [address] [place] [address] WORK[employer] COMPENS[employer] GENERIC Member Subscriber Plan / Payer (Ef fective 2023-Present) Name:Cliff Cummins Relation to Subscriber:Employee Name:CANDACE DE LEON Address: [address] [id number] Payer ID:[id number] Group ID:Not on file Type:WORKERS COMPENSATION Address: [address], [place] [id number] Care Teams Railway Track Worker Relationship Specialty Start Date End Date No, Physician PCP - General 09/29/23
--- OUTSIDE RECORDS SUMMARY | 2024-06-23 06:30 | XMS_ITS | Clinical Summary ---
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 Gender Identity Not on file Sexual Orientation Not on file Plan of Treatment Health Maintenance Due Date Last Done Comments Hepatitis C Virus (HCV) Screening 1957 TdaP Immunization 1957 Colonoscopy 2002 Colorectal Cancer Screening 2002 Cologuard 2007 Immunochemical Fecal Occult Blood 2007 Pneumococcal Immunization (5 0+ years) (1 of 1 - PCV) 2007 Zoster Immunization (1 of 2) 2007 PSA Discussion 01/17/2012 Influenza Immunization (#1) 12/11/202301/10, 03/16/2019 SARS-COV-2 Immunization (2023-25 season) 2023 Respiratory Syncytial Virus (RSV) Immunization (Adult) (1 - 1-dose 75+ series) 01/17/2032 Hepatitis B Immunization Aged Out No longer eligible based on patient's age to complete this topic Meningococcal Immunization (ACWY) Aged Out No longer eligible b ased on patient's age to complete this topic Rotavirus Immunization Aged Out No lo nger eligible based on patient's age to complete this topic Insurance [employer] GENERIC on file
[2024-06-23 07:45] VITALS: BP 131/69; PULSE 60; RESP 16; O2SAT 97
--- OUTSIDE RECORDS SUMMARY | 2024-06-23 07:58 | XMS_ITS | Clinical Summary ---
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
--- OUTSIDE RECORDS SUMMARY | 2024-06-23 07:58 | XMS_ITS | Referral Summary ---
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 Gender Identity Not on file Sexual Orientation [...] Not on file Insurance MEDICARE MEDICARE SOL[employer]IONS [facility] MEDIC[facility] Address: [address] [address] [place] [address] WORK[employer] COMP[employer] GENERIC Member Subscriber Plan / Payer (Ef fective 2023-Present) Name:Cliff Cummins Relation to Subscriber:Employee Name:CANDACE DE LEON Address: [address] [facility] Payer ID:[id number] Group ID:Not on file Type:WORKERS COMPENSATION Address: [address], [place] [address] Care Teams Tso Relationship Specialty Start Date End Date No, Physician PCP - General 09/29/23
--- OUTSIDE RECORDS SUMMARY | 2024-06-23 07:58 | XMS_ITS | Clinical Summary ---
Author Organization 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
[2024-06-23 08:37] LABS: Basophils Percent Auto 0.5 % (0.2-1.2); Eosinophils Absolute Auto 0.1 K/mm3 (0-0.3); Eosinophils Percent Auto 1.4 % (0-4.4); Hematocrit 36.6 % (42.0-52.0); Hemoglobin 12.9 g/dL (14.0-18.0); Immature Granulocyte Absolute 0.01 K/mm3 (0.00-0.031); Immature Granulocyte Percent A 0.2 % (0-0.5); Lymphocytes Absolute Auto 1.55 K/mm3 (0.9-3.2); Lymphocytes Percent Auto 24.8 % (18.3-44.2); Mean Corpuscular HGB Conc 35.2 g/dl (32-36); Mean Corpuscular Volume 90.8 fl (80-100); Mean Platelet Volume 9.3 fl (7.4-10.4); Monocytes Absolute Auto 0.5 K/mm3 (0.1-0.6); Monocytes Percent Auto 7.2 % (2.6-8.5); Neutrophils Absolute Auto 4.1 K/mm3 (1.3-6.7); Neutrophils Percent Auto 65.9 % (45.5-73.1); Platelet Count Result 173 k/mm3 (150-375); Red Blood Count 4.03 M/mm3 (4.6-6.20); Red Cell Distribution Width 11.8 % (11.5-14.5); White Blood Count 6.3 K/mm3 (4.5-10.0)
--- NOTE | 2024-06-23 08:39 | ED.GENADULT ---
HPI - General Adult General Chief complaint: Urogenital-Male Stated complaint: lower back pain, urinary sx Time Seen by Provider: 06/23/24 07:53 History of Present Illness HPI narrative: 69-year-old male present to the emergency department for evaluation for left flank pain. Patient reports the pain started approximately 4:00 a.m. but he did not notify his family until approximately 6:00 a.m.. Patient states since that time the pain has since improved. Patient did described left flank pain that radiated to his left lower quadrant and down to his groin. Patient does have prior history of kidney stones and states this does feel similar to previous kidney stones. Patient denies any recent cough cold fevers falls or injuries. Patient's family is translating declined the use the translating service. Related Data Allergies Allergy/AdvReac Type Severity Reaction Status Date / Time No Known Allergies Allergy Verified 06/23/24 06:28 Review of Systems Review of Systems: All systems reviewed & are unremarkable except as noted in HPI and below PMFSH Past Medical History Medical History Hypertension Postconcussion syndrome History of gastroesophageal reflux (GERD) History of hyperlipidemia Surgical History Surgical History (Updated 03/21/24 @ 19:13 by Zohra Conklin MD) History of back surgery Social History Social History Smoking status: Never smoker Occupation/Education: occupation Additional occupation/education comments: [employer] Exam Narrative: APPEARANCE: Well appearing, no pain, no distress, well-nourished. HEAD: normocephalic, atraumatic. EYES: PERRLA/EOMI, conjunctivae clear. NOSE: Normal no drainage EARS:TMS clear with good light reflex. THROAT: Pharynx clear, no exudate. NECK: Supple. No adenopathy, no masses. RESPIRATORY: Airway patent, respirations nonlabored. Clear to auscultation bilaterally, no rales, rhonchi, wheezing. CARDIOVASCULAR: Regular rate and rhythm without murmurs rubs or gallops. ABDOMINAL: Soft, nontender, nondistended, normal bowel sounds MUSCULOSKELETAL: Moves all extremities. Strength/ROM intact, No edema, No calf tenderness. NEURO: Alert. Cranial nerves II through XII intact. Good gait. Good coordination SKIN: Warm, dry. Normal Color Course Vital Signs Vital signs: Vital Signs Temperature 97.0 F L 06/23/24 06:29 Pulse Rate 70 06/23/24 06:29 Respiratory Rate 16 06/23/24 06:29 Blood Pressure 151/71 H 06/23/24 06:29 Pulse Oximetry 99 06/23/24 06:29 Oxygen Delivery Room Air 06/23/24 06:29 Temperature 97.0 F L 06/23/24 06:29 Pulse Rate 60 06/23/24 09:50 Respiratory Rate 16 06/23/24 09:50 Blood Pressure 130/86 06/23/24 09:50 Pulse Oximetry 96 06/23/24 09:50 Oxygen Delivery Room Air 06/23/24 06:29 Medical Decision Making MDM Narrative Medical decision making narrative: 69-year-old male presents emergency department for evaluation for left flank pain that has since improved compared to the intensity of this morning. Patient reports that the pain medication provided also helped. Patient is currently afebrile with no leukocytosis and hemoglobin of 12.9. Patient has no acute abnormalities on his CMP UA was positive for red blood cells but negative for infection. CT scan does show punctate kidney stones at the UVJ. Patient does take Flomax. Patient will be provided medication for pain control and patient does follow-up with Urology at [facility]. Patient family are with plan for discharge and close follow-up Differential Diagnosis Differential Diagnosis: Urinary tract infection, ureteral calculi, colitis, diverticulitis, urinary retention Vital Signs Vital Signs: Vital Signs Temperature 97.0 F L 06/23/24 06:29 Pulse Rate 70 06/23/24 06:29 Respiratory Rate 16 06/23/24 06:29 Blood Pressure 151/71 H 06/23/24 06:29 Pulse Oximetry 99 06/23/24 06:29 Oxygen Delivery Room Air 06/23/24 06:29 Temperature 97.0 F L 06/23/24 06:29 Pulse Rate 60 06/23/24 09:50 Respiratory Rate 16 06/23/24 09:50 Blood Pressure 130/86 06/23/24 09:50 Pulse Oximetry 96 06/23/24 09:50 Oxygen Delivery Room Air 06/23/24 06:29 Lab Data Lab results reviewed: Yes I reviewed the patient's lab results. 06/23/24 08:23 06/23/24 08:23 Labs: Lab Results 06/23/24 Range/Units 08:23 WBC 6.3 (4.5-10.0) K/mm3 RBC 4.03 L (4.6-6.20) M/mm3 Hgb 12.9 L (14.0-18.0) g/dL Hct 36.6 L (42.0-52.0) % MCV 90.8 (80-100) fl MCH 32.0 (26-34) pg MCHC 35.2 (32-36) g/dl RDW 11.8 (11.5-14.5) % Plt Count 173 (150-375) k/mm3 MPV 9.3 (7.4-10.4) fl Immature Gran % (Auto) 0.2 (0-0.5) % Neut % (Auto) 65.9 (45.5-73.1) % Lymph % (Auto) 24.8 (18.3-44.2) % [place] % (Auto) 7.2 (2.6-8.5) % Eos % (Auto) 1.4 (0-4.4) % Baso % (Auto) 0.5 (0.2-1.2) % Lymph # (Auto) 1.55 (0.9-3.2) K/mm3 [place] # (Auto) 0.5 (0.1-0.6) K/mm3 Eos # (Auto) 0.1 (0-0.3) K/mm3 Baso # (Auto) 0.0 (0.0-0.1) K/mm3 Abs Immat Gran (auto) 0.01 (0.00-0.031) K/mm3 Absolute Neuts (auto) 4.1 (1.3-6.7) K/mm3 Absolute Nucleated RBC 0.000 (0.0-0.012) K/mm3 Nucleated RBC % 0.0 (0.0-0.2) % PT 14.3 (11.1-14.7) Seconds INR 1.1 APTT 28.8 (22.3-36.8) Seconds Sodium 141 (137-145) mmol/L Potassium 3.9 (3.4-5.0) mmol/L Chloride 107 (98-107) mmol/L Carbon Dioxide 25 (22-30) mmol/L Anion Gap 9 (4-12) mmol/L BUN 18 (9-20) mg/dL Creatinine 0.90 (0.7-1.3) mg/dL Estim Creat Clear Calc 63 ml/min Estimated GFR > 60 (59 - ) Glucose 120 H (65-110) mg/dL Calcium 8.9 (8.4-10.2) mg/dL Total Bilirubin 1.0 (0.2-1.3) mg/dL AST 26 (17-59) U/L ALT 34 (6-50) U/L Alkaline Phosphatase 64 (38-126) U/L Total Protein 7.0 (6.3-8.2) g/dL Albumin 4.3 (3.5-5.1) g/dL Urine Color Yellow (Yellow) Urine Appearance Clear (Clear) Urine pH 7.0 (5.0-9.0) Ur Specific [place] 1.018 (1.001-1.035) Urine Protein Negative (Negative) mg/dL Urine Glucose (UA) Negative (Negative) mg/dL Urine Ketones Negative (Negative) mg/dL Ur Blood (Man) 1+ H (Negative) Urine Nitrate Negative (Negative) Urine Bilirubin Negative (Negative) Urine Urobilinogen 0.2 (<2.0) mg/dL Leukocyte Esterase Rfl Negative (Negative) GOKUL/UL Urine RBC 21-50 H (0-2) /hpf Urine WBC 0-5 (0-3) /hpf Ur Squamous Epith Cells None seen (Few) /hpf Urine Bacteria None seen /hpf Urine Casts 0-2 Imaging Data Radiologist's impression: Impressions Abdomen/Pelvis CT 06/23/24 09:02 Impression: Punctate left UVJ stone, without significant hydronephrosis. Discharge Plan Discharge Clinical Impression: Calculi, ureter Patient Disposition: Home, Self-Care Condition: Stable Instructions: Antibiotic Form, Kidney Stones (ED), Flank Pain (ED) Additional Instructions: Continue to take your Flomax as directed. Drink plenty of fluids. Ibuprofen for pain control. [place] as needed for additional pain control. Have close follow-up with Urology. If you have any worsening symptoms then please call or return to the emergency department. Patient Language: Kyrgyz Prescriptions: New hydrocodone-acetaminophen 5-325 mg tablet 1 tablet PO Q12H PRN (Reason: pain) Qty: 14 0RF No Action ondansetron 4 mg tablet,disintegrating 4 mg PO Q8H PRN (Reason: nausea and vomiting) Qty: 10 0RF naproxen [Naprosyn] 500 mg tablet 500 mg PO BID PRN (Reason: pain) Qty: 20 0RF cyclobenzaprine 10 mg tablet 10 mg PO TID PRN (Reason: muscle spasm) Qty: 30 0RF omeprazole 20 mg tablet,delayed release (DR/EC) 20 mg PO DAILY Qty: 30 0RF acetaminophen 500 mg capsule 1,000 mg PO Q6H PRN (Reason: pain) Qty: 30 0RF lidocaine 4 % adhesive patch,medicated 1 patch topical DAILY PRN (Reason: pain) Qty: 5 0RF methocarbamol 750 mg tablet 750 mg PO HS Qty: 10 0RF ibuprofen 600 mg tablet 600 mg PO TID PRN (Reason: pain) Qty: 30 0RF naproxen 375 mg tablet 375 mg PO BID Qty: 14 0RF docusate sodium [Colace] 100 mg capsule 100 mg PO DAILY Qty: 7 0RF docusate sodium [Colace] 100 mg capsule 100 mg PO DAILY Qty: 7 0RF naproxen 375 mg tablet 375 mg PO BID Qty: 14 0RF Follow-up/Referrals: Cruzito,Artemio Singh MD [Primary Care Provider] -
[2024-06-23 08:44] LABS: Add Urine Microscopic? YES; Appearance Urine Clear (Clear); Bacteria Urine None Seen /hpf; Bilirubin Urine Negative (Negative); Blood Urine 1+ (Negative); Color Urine Yellow (Yellow); Glucose Urine UA Negative (Negative); Ketones Urine Negative (Negative); Leukocyte Esterase Ur Negative LEU/UL (Negative); Nitrate Urine Negative (Negative); Non Pathogenic Casts 0-2; Protein Urine Negative (Negative); RBC Urine 21-50 /hpf (0-2); Specific Grav Ur 1.018 (1.001-1.035); Squamous Epithelial Cell Urine None Seen /hpf (Few); Urobilinogen Urine 0.2 mg/dL (<2.0); WBC Urine 0-5 /hpf (0-3)
[2024-06-23] MEDS: HYDROcodone/acetaminophen (*CRX) 7.5-325 MG TABLET 1 TAB PO (08:45)
[2024-06-23 08:47] LABS: Alanine Aminotransferase 34 U/L (6-50); Albumin Level 4.3 g/dL (3.5-5.1); Alkaline Phosphatase 64 U/L (38-126); Anion Gap 9 mmol/L (4-12); Aspartate Amino Transferase 26 U/L (17-59); Blood Urea Nitrogen 18 mg/dL (9-20); Calcium 8.9 mg/dL (8.4-10.2); Carbon Dioxide 25 mmol/L (22-30); Chloride 107 mmol/L (98-107); Estimated CRCL calculation 63 ml/min; Estimated Glomerular Filt Rate > 60; Glucose 120 mg/dL (65-110); Potassium 3.9 mmol/L (3.4-5.0); Sodium 141 mmol/L (137-145)
[2024-06-23 09:14] LABS: INR 1.1; Prothrombin Time 14.3 Seconds (11.1-14.7)
[2024-06-23 09:15] LABS: Partial Thromboplastin Time 28.8 Seconds (22.3-36.8)
[2024-06-23 09:50] VITALS: BP 130/86; PULSE 60; RESP 16; O2SAT 96
== END 2024-06-23 09:50 | disposition home or self-care (01) ==
PROVIDERS: Emergency Provider Emergency Medicine; PCP Family Medicine
DX: N20.1 Calculus of ureter (principal); I10 Essential (primary) hypertension; E78.5 Hyperlipidemia, unspecified; K21.9 Gastro-esophageal reflux disease without esophagitis; Z87.442 Personal history of urinary calculi
CPT/HCPCS: 36415; 74176; 80053; 81001; 85025; 85610; 85730; 99284; A9270

== ENCOUNTER 2024-08-15 08:11 | Emergency (ER) | payer MEDICARE, MEDICAID, SELFPAY ==
[2024-08-15] VITALS (11 sets, daily range): BP systolic 124–161; BP diastolic 75–98; PULSE 52–65; RESP 11–18; TEMP 36.4; O2SAT 96–100
--- NOTE | ~2024-08-15 | CT_ITS ---
EXAMINATION: CT brain wo con DATE: 08/15/2024 08:39 INDICATION: Vertigo TECHNIQUE: Computed tomography (CT) of the head was performed without intravenous contrast. Sagittal and coronal reconstructions were performed. The mA was adjusted according to patient size. Iterative reconstruction technique was employed. The dose-length product was 605.33 mGy-cm. COMPARISON: head CT dated 05/23/21 FINDINGS: No acute intracranial hemorrhage, acute infarction or abnormal extra axial fluid collection. Ventricl es are normal and symmetric. No mass/mass effect. Mild mucosal thickening bilateral ethmoid sinuses. The orbits, paranasal sinuses and mastoid air cells are normal. IMPRESSION: 1. No acute intracranial process. Reviewed, dictated and finalized at location A.
--- NOTE | ~2024-08-15 | XR_ITS ---
EXAMINATION: XR chest 2V 08/15/2024 08:46 INDICATION: Dizziness. PROCEDURE: 2 view chest COMPARISON: Comparison to multiple prior studies sequentially, with oldest reviewed study dated . FINDINGS: The lungs are clear. The cardiomediastinal silhouette is within normal limits. There are no pleural effusions. There is no pneumothorax suspected. IMPRESSION: 1: NO ACUTE CARDIOPULMONARY DISEASE. Reviewed, dictated and finalized at location A.
--- NOTE | 2024-08-15 08:15 | ECG_ITS ---
Test Date: 2024-08-15 08:20:02 Measurements Intervals [place] Rate: 59 P: -30 VT: 141 QRS: 53 QRSD: 93 T: 30 QT: 405 QTc: 403 Interpretive Statements SINUS BRADYCARDIA MINIMAL VOLTAGE CRITERIA FOR LVH, CONSIDER NORMAL VARIANT [MEETS CRITERIA IN ONE OF: R(aVL), S(V1), R(V5), R(V5/V6)+S(V1)] Compared to ECG 03/20/2024 01:52:19 No significant changes Electronically Signed On 08-15-2024 14:03:09 CDT by Wendy Perez M.D.
--- OUTSIDE RECORDS SUMMARY | 2024-08-15 08:20 | XMS_ITS | Clinical Summary ---
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
--- OUTSIDE RECORDS SUMMARY | 2024-08-15 08:20 | XMS_ITS | Clinical Summary ---
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 Gender Identity Not on file Sexual Orientation [...] (3 - season) 12/11/202303/2021, 06/30/2020 Influenza Vaccine (Season Ended) 2024 02/07/20 20, 03/16/2019 DTaP/Tdap/Td Vaccine (2 - Td or Tdap) 12/21/203303/2024 Insurance MEDICARE [facility] MEDICARE ADVANTAGE WORKERS COMPENSATION GENERIC Member Subscriber Plan / Payer (Ef fective 2023-Present) Name:Cliff Cummins Relation to Subscriber:Employee Name:CANDACE DE LEON Address: [address] [place] [address] Payer ID:[id number] Group ID:Not on file Type:WORKERS COMPENSATION Address: [address], [id number] Care Teams Special Education Inclusion Teacher Relationship Specialty Start Date End Date No, Physician PCP - General 09/29/23
--- OUTSIDE RECORDS SUMMARY | 2024-08-15 08:20 | XMS_ITS | Referral Summary ---
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
--- NOTE | 2024-08-15 08:30 | ED.DIZZY ---
HPI - Dizziness General Chief Complaint: Dizziness Stated Complaint: dizzy, left side flank pain Time Seen by Provider: 08/15/24 08:21 History of Present Illness HPI Narrative: 69-year-old male with a past medical history including hyperlipidemia, GERD, postconcussive syndrome from previous injury, BPPV. Patient presents to the emergency room with chief complaint of dizziness where he describes vertiginous symptoms especially with position changes. He states he feels like he loses balance occasionally when he walks but does not have any laterality or side preference. Endorses a mild headache at this time but no nausea or vomiting. No new injuries or trauma. He states it feels very similar to when he was diagnosed with BPPV after head injury in the past about 5-6 years ago. He also endorses some intermittent left-sided discomfort and states that occasionally his left lung hurts and wishes to have an x-ray of this today. He states this is not new and denies any chest pain Related Data Allergies Allergy/AdvReac Type Severity Reaction Status Date / Time No Known Allergies Allergy Verified 08/15/24 08:26 Review of Systems Review of Systems: As reviewed above in HPI [facility] Past Medical History Medical History Hypertension Postconcussion syndrome History of gastroesophageal reflux (GERD) History of hyperlipidemia Surgical History Surgical History History of back surgery Social History Social History Smoking status: Never smoker Occupation/Education: occupation Additional occupation/education comments: [employer] Exam Narrative: GENERAL: [Well-appearing, well-nourished, and in no acute distress.] HEAD: [Normocephalic, atraumatic.] EYES: [PERRLA and EOMI.] ENT: Nares clear, no rhinorrhea or epistaxis. Mucous membranes moist. NECK: Supple. CHEST: [Clear to auscultation. No respiratory distress.] HEART: [Regular rate and rhythm]. No murmur heard. [Normal peripheral pulses.] ABDOMEN: [Soft, nondistended], [nontender], [No rigidity or guarding] EXTREMITIES: Normal range of motion. [No edema.] SKIN: Warm, dry, no rash. NEURO: [No focal deficits]. Alert and oriented [x3.] No ataxia, ambulates with a steady gait PSYCH: [Normal mood and affect.] Course Vital Signs Vital signs: Vital Signs Temperature 36.4 C L 08/15/24 08:15 Pulse Rate 64 08/15/24 08:15 Respiratory Rate 14 08/15/24 08:15 Blood Pressure 149/84 H 08/15/24 08:15 Pulse Oximetry 97 08/15/24 08:15 Oxygen Delivery Room Air 08/15/24 08:15 Temperature 36.4 C L 08/15/24 08:15 Pulse Rate 58 L 08/15/24 11:14 Respiratory Rate 14 08/15/24 11:14 Blood Pressure 144/83 H 08/15/24 11:14 Pulse Oximetry 98 08/15/24 11:14 Oxygen Delivery Room Air 08/15/24 08:15 MDM - Dizziness MDM Narrative Medical decision making narrative: 69-year-old male with a past medical history of GERD, hyperlipidemia, BPPV, post concussive syndrome, kidney stone. Patient is primarily Swedish-speaking translator/interpreter services were used communicate effectively. Patient presents with intermittent vertiginous symptoms worse with positional changes and standing as well as feeling imbalance. States it feels similar to the time he had BPPV after concussion several years ago. Also endorses some left-sided ?lung pain ?but this is not new and he just wishes to get this checked out in addition to his other complaint. He is overall well-appearing, not any acute distress, vital signs are reassuring without any significant hypertension, tachycardia, tachypnea, fever or hypoxia. He has an unremarkable neurological assessment but no ataxia or dysarthria. Normal strength and sensation. Suspicion presently is for BPPV versus other causes such as dehydration, Meniere's, infectious process such as otitis. He did recently start taking Flomax for his kidney stone several weeks ago and this could be contributing. Low suspicion cardiac or intracranial pathology but given his age and risk factors we will reassess with a broad workup including a CBC, CMP, troponin, EKG, chest x-ray and a CT of the head. He was given a fluid bolus, meclizine, placed on gaming table operator and re-evaluated after treatments to see if he has any improvement. Orthostatic vitals ordered. Workup shows no leukocytosis or anemia. Normal baseline platelets. Normal coagulation panel. Normal electrolytes, normal renal function, normal glucose and LFTs. Negative troponin. Chest x-ray shows no acute cardiopulmonary disease. CT of the head shows no acute intracranial process. EKG shows sinus bradycardia with rate of 59, no ST segment elevations, depressions. Patient re-evaluated and felt improved after meclizine. He was able ambulate in the emergency department. He will be discharged home with prescription for meclizine and ENT referral as well as return precautions. Medical Records Attestation: I reviewed the patient's medical records. Lab Data Attestation: I reviewed the patient's lab results. 08/15/24 08:25 08/15/24 08:25 Labs: Lab Results 08/15/24 Range/Units 08:25 WBC 6.1 (4.5-10.0) K/mm3 RBC 4.35 L (4.6-6.20) M/mm3 Hgb 13.6 L (14.0-18.0) g/dL Hct 40.4 L (42.0-52.0) % MCV 92.9 (80-100) fl MCH 31.3 (26-34) pg MCHC 33.7 (32-36) g/dl RDW 12.0 (11.5-14.5) % Plt Count 161 (150-375) k/mm3 MPV 9.5 (7.4-10.4) fl Immature Gran % (Auto) 0.3 (0-0.5) % Neut % (Auto) 54.4 (45.5-73.1) % Lymph % (Auto) 33.4 (18.3-44.2) % [place] % (Auto) 8.9 H (2.6-8.5) % Eos % (Auto) 2.3 (0-4.4) % Baso % (Auto) 0.7 (0.2-1.2) % Lymph # (Auto) 2.03 (0.9-3.2) K/mm3 [place] # (Auto) 0.5 (0.1-0.6) K/mm3 Eos # (Auto) 0.1 (0-0.3) K/mm3 Baso # (Auto) 0.0 (0.0-0.1) K/mm3 Abs Immat Gran (auto) 0.02 (0.00-0.031) K/mm3 Absolute Neuts (auto) 3.3 (1.3-6.7) K/mm3 Absolute Nucleated RBC 0.000 (0.0-0.012) K/mm3 Nucleated RBC % 0.0 (0.0-0.2) % Sodium 143 (137-145) mmol/L Potassium 3.9 (3.4-5.0) mmol/L Chloride 107 (98-107) mmol/L Carbon Dioxide 27 (22-30) mmol/L Anion Gap 9 (4-12) mmol/L BUN 22 H (9-20) mg/dL Creatinine 0.78 (0.7-1.3) mg/dL Estim Creat Clear Calc 72 ml/min Estimated GFR > 60 (59 - ) Glucose 131 H (65-110) mg/dL Calcium 8.9 (8.4-10.2) mg/dL Total Bilirubin 0.8 (0.2-1.3) mg/dL AST 34 (17-59) U/L ALT 38 (6-50) U/L Alkaline Phosphatase 70 (38-126) U/L Troponin I < 0.012 (0.000-0.034) ng/mL Total Protein 8.0 (6.3-8.2) g/dL Albumin 4.4 (3.5-5.1) g/dL Imaging Data Attestation: I personally reviewed and interpreted this imaging study as follows: My impression: Impressions Head CT 08/15/24 08:42 IMPRESSION: 1. No acute intracranial process. Chest X-Ray 08/15/24 08:47 IMPRESSION: 1: NO ACUTE CARDIOPULMONARY DISEASE. ECG Data EKG #1: Attestation: I personally reviewed and interpreted this ECG as follows: ECG completion date: 08/15/24 ECG completion time: 08:20 Prior ECG tracings: available for review Interpretation: No ST segment elevations, depressions or inversions. QTC 403, FL interval 141, QRS 93. Rate of 59 beats per minute. No significant interval change compared to prior EKG. Overall interpretation sinus bradycardia without signs of acute ischemia. Discharge Plan Discharge Clinical Impression: Benign paroxysmal positional vertigo Patient Disposition: Home Condition: Stable Instructions: Antibiotic Form, Benign Paroxysmal Positional Vertigo (ED), Dizziness (ED) Additional Instructions: Your workup today and images were all reassuring and appeared normal. We will treat you with medications for BPPV which is a benign sensation of vertigo likely related to crystals within the inner ears and likely what happened to you previously. Please contact the provided planer off bearer for outpatient referral and their evaluation. Return with any persistent or new/worsening concerns. Patient Language: Djiboutian Prescriptions: New meclizine 25 mg tablet 25 mg PO TID PRN (Reason: dizziness) 10 Days Qty: 30 0RF No Action ondansetron 4 mg tablet,disintegrating 4 mg PO Q8H PRN (Reason: nausea and vomiting) Qty: 10 0RF naproxen [Naprosyn] 500 mg tablet 500 mg PO BID PRN (Reason: pain) Qty: 20 0RF cyclobenzaprine 10 mg tablet 10 mg PO TID PRN (Reason: muscle spasm) Qty: 30 0RF omeprazole 20 mg tablet,delayed release (DR/EC) 20 mg PO DAILY Qty: 30 0RF acetaminophen 500 mg capsule 1,000 mg PO Q6H PRN (Reason: pain) Qty: 30 0RF lidocaine 4 % adhesive patch,medicated 1 patch topical DAILY PRN (Reason: pain) Qty: 5 0RF methocarbamol 750 mg tablet 750 mg PO HS Qty: 10 0RF ibuprofen 600 mg tablet 600 mg PO TID PRN (Reason: pain) Qty: 30 0RF naproxen 375 mg tablet 375 mg PO BID Qty: 14 0RF docusate sodium [Colace] 100 mg capsule 100 mg PO DAILY Qty: 7 0RF docusate sodium [Colace] 100 mg capsule 100 mg PO DAILY Qty: 7 0RF naproxen 375 mg tablet 375 mg PO BID Qty: 14 0RF hydrocodone-acetaminophen 5-325 mg tablet 1 tablet PO Q12H PRN (Reason: pain) Qty: 14 0RF Follow-up/Referrals: Ewa Pacheco MD [Physician] - 1 Week (Vertigo) Cruzito,Artemio Singh MD [Primary Care Provider] - Time of Disposition: 10:55
[2024-08-15 08:34] LABS: Basophils Percent Auto 0.7 % (0.2-1.2); Eosinophils Absolute Auto 0.1 K/mm3 (0-0.3); Eosinophils Percent Auto 2.3 % (0-4.4); Hematocrit 40.4 % (42.0-52.0); Hemoglobin 13.6 g/dL (14.0-18.0); Immature Granulocyte Absolute 0.02 K/mm3 (0.00-0.031); Immature Granulocyte Percent A 0.3 % (0-0.5); Lymphocytes Absolute Auto 2.03 K/mm3 (0.9-3.2); Lymphocytes Percent Auto 33.4 % (18.3-44.2); Mean Corpuscular HGB Conc 33.7 g/dl (32-36); Mean Corpuscular Hemoglobin 31.3 pg (26-34); Mean Corpuscular Volume 92.9 fl (80-100); Mean Platelet Volume 9.5 fl (7.4-10.4); Monocytes Absolute Auto 0.5 K/mm3 (0.1-0.6); Monocytes Percent Auto 8.9 % (2.6-8.5); Neutrophils Absolute Auto 3.3 K/mm3 (1.3-6.7); Neutrophils Percent Auto 54.4 % (45.5-73.1); Platelet Count Result 161 k/mm3 (150-375); Red Blood Count 4.35 M/mm3 (4.6-6.20); White Blood Count 6.1 K/mm3 (4.5-10.0)
[2024-08-15 08:41] LABS: Alanine Aminotransferase 38 U/L (6-50); Albumin Level 4.4 g/dL (3.5-5.1); Alkaline Phosphatase 70 U/L (38-126); Anion Gap 9 mmol/L (4-12); Aspartate Amino Transferase 34 U/L (17-59); Bilirubin,Total 0.8 mg/dL (0.2-1.3); Blood Urea Nitrogen 22 mg/dL (9-20); Calcium 8.9 mg/dL (8.4-10.2); Carbon Dioxide 27 mmol/L (22-30); Chloride 107 mmol/L (98-107); Estimated CRCL calculation 72 ml/min; Estimated Glomerular Filt Rate > 60; Glucose 131 mg/dL (65-110); Potassium 3.9 mmol/L (3.4-5.0); Sodium 143 mmol/L (137-145)
[2024-08-15] MEDS: SODIUM CHLORIDE 0.9% IV 1,000 ML 999 ML IV CONT (08:49)
[2024-08-15] MEDS: MECLIZINE HCL 25 MG TABLET PO (08:49)
[2024-08-15 08:53] LABS: Troponin I < 0.012 ng/mL (0.000-0.034)
== END 2024-08-15 11:15 | disposition home or self-care (01) ==
PROVIDERS: Emergency Provider Student in an Organized Health Care Education/Training Program; PCP Family Medicine
DX: H81.10 Benign paroxysmal vertigo, unspecified ear (principal); I10 Essential (primary) hypertension; E78.5 Hyperlipidemia, unspecified; K21.9 Gastro-esophageal reflux disease without esophagitis; R00.1 Bradycardia, unspecified
CPT/HCPCS: 36415; 70450; 71046; 80053; 84484; 85025; 93005; 96360; 99284; A9270; J7030

== ENCOUNTER 2024-10-26 09:47 | Outpatient (CLI) | payer MEDICARE, MEDICAID, SELFPAY ==
--- OUTSIDE RECORDS SUMMARY | 2024-10-26 09:50 | XMS_ITS | Clinical Summary ---
Author Organization 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
--- OUTSIDE RECORDS SUMMARY | 2024-10-26 09:50 | XMS_ITS | Referral Summary ---
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
--- OUTSIDE RECORDS SUMMARY | 2024-10-26 09:50 | XMS_ITS | Clinical Summary ---
Author Organization [facility] Address [address] [place] [id number] Care Team Providers Care Licensing Analyst Name Role Phone No, Physician Primary Care Provider [phone] Allergies No known active allergies Medications cyclobenzaprin [...] on file Legal Sex Male 12:14 PM [employer] Gender Identity Not on file Sexual Orientation [...] - Td or Tdap) 12/21/203303/2024 Insurance MEDICARE [facility] MEDICARE ADVANTAGE [facility] Address: [address] [address] [place] [address] [employer] GENERIC Member Subscriber Plan / Payer (Ef fective 2023-Present) Name:Cliff Cummins Relation to Subscriber:Employee Name:CANDACE DE LEON Address: [address] [place] [address] Payer ID:[id number] Group ID:Not on file Type:WORKERS COMPENSATION Address: [address], [facility] Care Teams Licensing Analyst Relationship Specialty Start Date End Date No, Physician PCP - General 09/29/23
== END 2024-10-26 09:48 | disposition home or self-care (01) ==
LOC: ANHAUDIO 09:47
PROVIDERS: PCP Family Medicine; Visit Provider Otolaryngology
DX: H90.3 Sensorineural hearing loss, bilateral (principal)
CPT/HCPCS: 92553; 92555; 92567